=== PATIENT | male | born 1955 | race Caucasian/White ===

== ENCOUNTER 2016-12-12 10:50 | Day surgery (SDC) | payer OTHER ==
[2013-09-16 11:49] VITALS: BP 127/82
--- NOTE | 2016-12-14 13:10 | GI Report ---
REFERRING PHYSICIAN: CASANDRA Rocha BILINGUAL RESEARCH INTERVIEWER: Richie Reynoso MD PROCEDURE MEDICATION: Propofol as per anesthesia. INDICATIONS: Patient had an adenomatous polyp removed 5 years ago. He is referred for a follow up. He denies any interval changes in his stools. Patient actually stopped smoking a year ago. He has lost 30 pounds in weight. PROCEDURE PERFORMED: Colonoscopy and cold snare polypectomy. PROCEDURE: An Olympus video colonoscope was advanced into the rectum. Kind of an atonic redundant colon. We were able to reach the cecum. The appendiceal orifice and terminal ileum were normal. On slow withdrawal, the cecum, ascending colon, and transverse colon with no obvious intraluminal lesions noted. The descending colon shows some redundancy. In the sigmoid colon at about 25 cm, the patient has 2 flat polyps about 3 mm in size and removed with a cold snare. Retroflexion of the rectum shows some hemorrhoids. Patient tolerated the procedure well. FINDINGS: 1. Two polyps removed from the sigmoid colon. 2. A slightly atonic redundant colon. 3. Internal hemorrhoids. RECOMMENDATIONS: 1. High-fiber diet. 2. Pending the pathology of the polyp, consider re-looking at his colon in 5 years. cc: CASANDRA Rocha [facility]
== END 2016-12-12 10:52 ==
LOC: OPSURG 10:50
PROVIDERS: ATTEND Internal Medicine Gastroenterology
DX: Z12.11 Encounter for screening for malignant neoplasm of colon (principal); D12.5 Benign neoplasm of sigmoid colon; K64.8 Other hemorrhoids; K59.8 Other specified functional intestinal disorders
CPT/HCPCS: 88305; J2704; J7120; 45385; S1016

== ENCOUNTER 2017-11-16 10:24 | Outpatient (CLI) | payer OTHER ==
[2013-09-16 11:49] VITALS: BP 127/82
[2017-11-16 11:11] LABS: eGFR (African) 53; eGFR (Non-African) 43
== END 2017-11-16 12:20 ==
LOC: LAB 10:24
PROVIDERS: ATTEND Nurse Practitioner Family
DX: N28.9 Disorder of kidney and ureter, unspecified (principal)
CPT/HCPCS: 36415; 80053

== ENCOUNTER 2017-12-26 15:07 | Outpatient (CLI) | payer OTHER ==
[2013-09-16 11:49] VITALS: BP 127/82
== END 2017-12-26 15:10 ==
LOC: NEPHRO 15:07
PROVIDERS: ATTEND Internal Medicine Nephrology
DX: I50.9 Heart failure, unspecified (principal); I48.91 Unspecified atrial fibrillation; N17.9 Acute kidney failure, unspecified; I10 Essential (primary) hypertension
CPT/HCPCS: 99213

== ENCOUNTER 2018-01-02 13:02 | Outpatient (CLI) | payer OTHER ==
[2013-09-16 11:49] VITALS: BP 127/82
== END 2018-01-02 13:03 ==
LOC: CARD 13:02
PROVIDERS: ATTEND Internal Medicine Cardiovascular Disease
DX: I50.9 Heart failure, unspecified (principal)

== ENCOUNTER 2018-01-09 10:54 | Outpatient (CLI) | payer OTHER ==
[2013-09-16 11:49] VITALS: BP 127/82
--- NOTE | 2018-01-09 13:49 | Diagnostic Imaging Report ---
STEPH LEVI [facility] [address] [facility] [address] [place] [address]. [id number] Report Submission Date: Jan 09, 2018 11:55:31 AM CDT Patient Study Name: ERUM WASHINGTON Date: Jan 09, 2018 11:33:03 AM CDT Modality Type: US Gender: O Description: : Institution: [facility] Physician: STEPH LEVI Renal ultrasound History: Hypertension Transverse and longitudinal images were obtained through the kidneys and bladder. Visualization is somewhat limited. Bladder configuration is unremarkable. The left kidney measures 13.0 x 6.3 x 5.5 cm in greatest dimension. The right kidney measures 12.0 x 7.0 x 6.2 cm in greatest dimension. Both kidneys demonstrate normal corticomedullary distinction without hydronephrosis or evident mass. Impression: No renal abnormalities are identified. Electronically signed on Jan 09, 2018 11:55:31 AM CDT by: Ariana MENDEZ
== END 2018-01-09 10:59 ==
LOC: RAD 10:54
PROVIDERS: ATTEND Internal Medicine Nephrology
DX: I50.9 Heart failure, unspecified (principal); N17.9 Acute kidney failure, unspecified; I10 Essential (primary) hypertension
CPT/HCPCS: 76770

== ENCOUNTER 2018-01-29 10:26 | Outpatient (CLI) | payer OTHER ==
[2013-09-16 11:49] VITALS: BP 127/82
[2018-01-29 10:46] LABS: BASOPHILS % 0.1 (0.0-1.5); EOSINOPHILS % 1.9 % (0.0-6.8); MEAN CORPUSCULAR HEMOGLOBIN 27.6 pg (28.0-34.0); MEAN CORPUSCULAR VOLUME 89.8 fl (80.0-100.0); MONOCYTES % 4.1 % (0.0-11.0); NEUTROPHILS # 7.6 # k/uL (1.4-7.7)
[2018-01-29 10:54] LABS: APPEARANCE,URINE CLEAR (CLEAR); COLOR,URINE YELLOW (YELLOW); OCCULT BLOOD,URINE NEGATIVE (NEGATIVE); PH URINE 5.5 (5.0 - 8.0)
== END 2018-01-29 10:28 ==
LOC: LAB 10:26
PROVIDERS: ATTEND Internal Medicine Nephrology
DX: I50.9 Heart failure, unspecified (principal); N17.9 Acute kidney failure, unspecified; I10 Essential (primary) hypertension
CPT/HCPCS: 36415; 80053; 81002; 85025

== ENCOUNTER 2018-01-30 14:01 | Outpatient (CLI) | payer OTHER ==
[2013-09-16 11:49] VITALS: BP 127/82
== END 2018-01-30 14:02 ==
LOC: NEPHRO 14:01
PROVIDERS: ATTEND Internal Medicine Nephrology
DX: I48.91 Unspecified atrial fibrillation (principal); I50.9 Heart failure, unspecified
CPT/HCPCS: 99213

== ENCOUNTER 2018-03-05 10:50 | Outpatient (CLI) | payer OTHER ==
[2013-09-16 11:49] VITALS: BP 127/82
[2018-03-05 11:46] LABS: eGFR (Non-African) 54
== END 2018-03-05 10:52 ==
LOC: LAB 10:50
PROVIDERS: ATTEND Internal Medicine Nephrology
DX: I10 Essential (primary) hypertension (principal); E11.9 Type 2 diabetes mellitus without complications; I50.9 Heart failure, unspecified
CPT/HCPCS: 36415; 80053

== ENCOUNTER 2018-04-30 10:58 | Outpatient (CLI) | payer OTHER ==
[2013-09-16 11:49] VITALS: BP 127/82
[2018-04-30 11:27] LABS: BASOPHILS % 0.1 (0.0-1.5); EOSINOPHILS % 5.9 % (0.0-6.8); MEAN CORPUSCULAR HEMOGLOBIN 26.8 pg (28.0-34.0); MONOCYTES % 7.3 % (0.0-11.0)
[2018-04-30 11:47] LABS: eGFR (Non-African) 46
== END 2018-04-30 11:00 ==
LOC: LAB 10:58
PROVIDERS: ATTEND Internal Medicine Nephrology
DX: I48.91 Unspecified atrial fibrillation (principal); I50.9 Heart failure, unspecified
CPT/HCPCS: 36415; 80053; 85025

== ENCOUNTER 2018-08-07 10:15 | Outpatient (CLI) | payer OTHER ==
[2013-09-16 11:49] VITALS: BP 127/82
[2018-08-07 10:39] LABS: BASOPHILS % 0.4 (0.0-1.5); EOSINOPHILS % 5.2 % (0.0-6.8); MEAN CORPUSCULAR HEMOGLOBIN 27.2 pg (28.0-34.0); MONOCYTES % 5.2 % (0.0-11.0); NEUTROPHILS # 5.3 # k/uL (1.4-7.7)
[2018-08-07 10:46] LABS: APPEARANCE,URINE CLEAR (CLEAR); COLOR,URINE YELLOW (YELLOW); OCCULT BLOOD,URINE NEGATIVE (NEGATIVE); PH URINE 5.5 (5.0 - 8.0)
[2018-08-07 11:17] LABS: eGFR (Non-African) 39
== END 2018-08-07 10:17 ==
LOC: LAB 10:15
PROVIDERS: ATTEND Internal Medicine Nephrology
DX: N18.9 Chronic kidney disease, unspecified (principal); I50.9 Heart failure, unspecified
CPT/HCPCS: 36415; 80053; 81002; 82570; 85025

== ENCOUNTER 2018-08-14 14:41 | Outpatient (CLI) | payer OTHER ==
[2013-09-16 11:49] VITALS: BP 127/82
== END 2018-08-14 14:43 ==
LOC: NEPHRO 14:41
PROVIDERS: ATTEND Internal Medicine Nephrology
DX: N17.9 Acute kidney failure, unspecified (principal); I10 Essential (primary) hypertension; E11.9 Type 2 diabetes mellitus without complications; I50.9 Heart failure, unspecified
CPT/HCPCS: 99213

== ENCOUNTER 2018-11-13 14:12 | Outpatient (CLI) | payer OTHER ==
[2013-09-16 11:49] VITALS: BP 127/82
== END 2018-11-13 14:13 ==
LOC: NEPHRO 14:12
PROVIDERS: ATTEND Internal Medicine Nephrology
DX: N17.9 Acute kidney failure, unspecified (principal); I11.0 Hypertensive heart disease with heart failure; E11.9 Type 2 diabetes mellitus without complications; I50.9 Heart failure, unspecified; I48.91 Unspecified atrial fibrillation; Z79.84 Long term (current) use of oral hypoglycemic drugs
CPT/HCPCS: 99213